=== PATIENT | female | born 1985 | race Caucasian/White ===

== ENCOUNTER 2016-11-02 23:00 | Emergency (ER) | payer OTHER ==
--- NOTE | 2016-11-03 00:05 | DIAGNOSTIC IMAGING REPORT ---
PROCEDURE: XR CHEST 1 VIEW INDICATION: CHEST PAIN TECHNIQUE: Portable AP view (2348 hours). COMPARISON: None. FINDINGS: Lungs are clear. Heart and mediastinum are normal. Thorax is normal. IMPRESSION: 1. Negative chest.
--- NOTE | 2016-11-03 01:26 | ED ORDER SUMMARY ---
..... Patient: AMINA CORNEJO OrderSheet [facility] VisitID: [id number] [address] [place] [address] 31y, F Registration Date/Time: 11/02/2016 ORDER SHEET Weight: 65.7 kg (stated) Allergies: No Known Drug Allergy GENERAL ORDERS: Chest 1V Urgent (23:52 11/02/2016 JBullard R.N. per protocol) (23:53 JBullard R.N.) Protocol Changed Cardiac Panel Stat (23:52 11/02/2016 JBullard R.N. per protocol) (23:53 JBullard R.N.) Protocol Changed EKG - ER Stat (:52 11/02/2016 JBullard R.N. per protocol) (Cancelled: Physician Order23:53 CHagerty ER Housekeeping And Laundry Team Leader) Protocol Changed Amylase Urgent (01:24 11/03/2016 Susan TIDWELL) (Ack 1:26 CHagerty ER Housekeeping And Laundry Team Leader) (1:32 JBullard R.N.) Lipase Urgent (:11/03/2016 Susan TIDWELL) (Ack 1:26 Isa ER Housekeeping And Laundry Team Leader) (1:32 JBullard R.N.) MEDICATION ORDERS: Pantoprazole Sodium PO 40 mg (Do not crush or chew, NOW) (:25 11/03/2016 Susan TIDWELL) (1:54 JBullard R.N.) IV FLUIDS: IV Saline Lock (23:52 11/02/2016 NEELullshaniqua R.N. per protocol) (23:53 JBullard R.N.) Protocol Changed ORDER SHEET NOTES: [Electronically signed by Eleuterio Berumen R.N. (01:57 11/03/2016)] [Electronically signed by Ivan South MD (15:42 11/07/2016)] [Electronically locked/signed by Eleuterio Berumen R.N. (:57 11/03/2016)]
--- NOTE | 2016-11-03 01:26 | ED CLINICAL REPORT ---
Clinical Report - Physicians/Mid Levels [facility] [address] [place] [address] 11/02/2016 23:01 Patient: AMINA CORNEJO Time Seen: 23:38. Arrived- By private vehicle. Historian- patient. HISTORY OF PRESENT ILLNESS Chief Complaint: ABDOMINAL PAIN. At its maximum, severity described as 7 / 10. When seen in the E.D., it was almost gone. It is described as cramping and it is described as located in the epigastric area and radiating to the upper back. This started last night and is still present but is better now. It was abrupt in onset and has been intermittent and waxing/waning. No nausea, loss of appetite, vomiting or diarrhea. (substernal radiating to back. comes and goes. woke pt from sleep. 7/10 pain at worst. pt states she is unable to take a deep breath at that time. pt states standing up straight exacerbates condition). Similar symptoms previously: ( She says that this pain is similar to when she had gallbladder attacks prior to her cholecystectomy). REVIEW OF SYSTEMS No chills, fever, muscle aches, calf pain or chest pain. No cough, difficulty breathing, pedal edema, palpitations or urinary problems. All systems otherwise negative, except as recorded above. SOCIAL HISTORY No alcohol use or drug use. FAMILY HISTORY Denies family medical history. ADDITIONAL NOTES The nursing notes have been reviewed. PHYSICAL EXAM Vital Signs: 11/02/2016 23:15 BP: 125/82. HR: 88. RR: 16. O2 saturation: 100%. Temp: 98.2 F. Have been reviewed. Appearance: Alert. Eyes: Pupils equal, round and reactive to light. ENT: Pharynx normal. Neck: Normal inspection. Neck supple. CVS: Normal heart rate and rhythm. Heart sounds normal. Respiratory: No respiratory distress. Breath sounds normal. Abdomen: Soft and nontender. Bowel sounds normal. No organomegaly. No mass. Back: Normal inspection. No CVA tenderness. Skin: Skin warm and dry. Normal skin color. Normal skin turgor. Extremities: Extremities exhibit normal ROM. No lower extremity edema. LABS, X-RAYS, AND EKG Chest X-ray: No acute disease. The X-rays were interpreted by the radiologist and contemporaneously by me. Laboratory Tests: CBC w Diff: (RIDDHI: 11/02/2016 23:30) ( MsgRcvd 11/03/2016 00:02) Final results Test Result Flag Units (Reference) WHITE BLOOD COUNT 10.5 K/uL (4.5-11.5) RED BLOOD COUNT 4.99 M/uL (4.00-5.20) HEMOGLOBIN 14.6 gm/dL (12.0-16.0) HEMATOCRIT 43.0 % (36.0-46.0) MEAN CELL VOLUME 86 fL (80-100) MEAN CORPUSCULAR HGB 29 pg (26-34) MEAN CORPUSCULAR HGB CONC 34 g/dL (31-37) RED CELL DISTRIBUTION WIDTH 12.9 % (11.6-14.8) PLATELET COUNT 311 K/uL (150-400) LYMPH % 25.2 % (25-40) MONO % 3.7 % (3-14) GRANULOCYTE % 71.1 (53-90) CHEM 13 PANEL: (RIDDHI: 11/02/2016 23:30) ( MsgRcvd 11/03/2016 00:14) Final results Test Result Flag Units (Reference) GLUCOSE 95 mg/dL (70-110) BUN 10 mg/dL (7-18) CREATININE 0.9 mg/dL (0.6-1.3) Estimated GFR >60 mL/min Estimated GFR- >60 mL/min Note: Persistent reduction over 3 months in eGFR<60 mL/min/1.73 m2 defines CKD. Patients with eGFR values>=60 mL/min/1.73 m2 may also have CKD if evidence ofpersistent proteinuria. Additional information may be foundat www.kidney.org. SODIUM 142 mmol/L (136-145) POTASSIUM 3.3 L mmol/L (3.5-5.1) CHLORIDE 102 mmol/L (98-107) CARBON DIOXIDE 27 mmol/L (21-32) CALCIUM 9.4 mg/dL (8.5-10.1) TOTAL PROTEIN 8.2 g/dL (6.4-8.2) ALBUMIN 4.4 g/dL (3.3-5.0) BILIRUBIN, TOTAL 0.4 mg/dL (0.0-1.0) ALKALINE PHOSPHATASE 97 U/L (46-116) AST (SGOT) 16 U/L (15-37) ALT (SGPT) 15 U/L (12-78) MAGNESIUM 2.0 mg/dL (1.8-2.4) CPK 132 U/L (24-260) TROPONIN I <0.05 L ng/mL (0.00-1.5) TROPONIN REFERENCE RANGE:<0.1 NEGATIVE0.1-1.5 INDETERMINANT>1.5 POSITIVE . PROGRESS AND PROCEDURES Course of Care: Patient is stable. Patient/family counseled. Old medical records ordered. Old records unavailable. Disposition: Discharged. Condition: stable. CLINICAL IMPRESSION Acute epigastric abdominal pain of unknown cause, now resolved. INSTRUCTIONS Drink plenty of fluids. Warnings: Further evaluation is necessary. GENERAL WARNINGS: Return or contact your physician immediately if your condition worsens or changes unexpectedly, if not improving as expected, or if other problems arise. Follow-up: Follow up with your doctor tomorrow. Understanding of the discharge instructions verbalized by patient. (Electronically signed by Ivan South MD 11/07/2016 15:42)
--- NOTE | 2016-11-03 01:26 | ED ORDER SUMMARY ---
..... Patient: AMINA CORNEJO OrderSheet [facility] VisitID: [id number] [address] [place] [address] 31y, F Registration Date/Time: 11/02/2016 ORDER SHEET Weight: 65.7 kg (stated) Allergies: No Known Drug Allergy GENERAL ORDERS: Chest 1V Urgent (23:52 11/02/2016 JBullard R.N. per protocol) (23:53 JBullard R.N.) Protocol Changed Cardiac Panel Stat (23:52 11/02/2016 JBullard R.N. per protocol) (23:53 JBullard R.N.) Protocol Changed EKG - ER Stat (:52 11/02/2016 JBullard R.N. per protocol) (Cancelled: Physician Order23:53 CHagerty ER Revenue Director) Protocol Changed Amylase Urgent (01:24 11/03/2016 Susan TIDWELL) (Ack 1:26 CHagerty ER Revenue Director) (1:32 JBullard R.N.) Lipase Urgent (:11/03/2016 Susan TIDWELL) (Ack 1:26 Isa ER Revenue Director) (1:32 JBullard R.N.) MEDICATION ORDERS: Pantoprazole Sodium PO 40 mg (Do not crush or chew, NOW) (:25 11/03/2016 Susan TIDWELL) (1:54 JBullard R.N.) IV FLUIDS: IV Saline Lock (23:52 11/02/2016 NEELullshaniqua R.N. per protocol) (23:53 JBullard R.N.) Protocol Changed ORDER SHEET NOTES: [Electronically signed by Eleuterio Berumen R.N. (01:57 11/03/2016)] [Electronically signed by Ivan South MD (15:42 11/07/2016)] [Electronically locked/signed by Eleuterio Berumen R.N. (:57 11/03/2016)]
--- NOTE | 2016-11-03 01:26 | ED NURSING NOTES ---
Clinical Report - Nurses [facility] [address] [place] [address] 11/02/2016 23:01 Patient: AMINA CORNEJO TRIAGE Triage time 2315. Acuity: LEVEL 2. Chief Complaint: CHEST PAIN. --23:20 Eleuterio Berumen R.N. 23:15 11/02/16. BP: 125/82. HR: 88. RR: 16. O2 saturation: 100%. Temp: 98.2 F. Pain level now 2/10. --23:20 Eleuterio Berumen R.N. Weight: 65.7 kg stated. Height/Length: 64 inches Per Patient. BMI: 24.9. --23:14 Eleuterio Berumen R.N. Medications None. --23:19 Eleuterio Berumen R.N. Allergies No Known Drug Allergy. --23:19 Eleuterio Berumen R.N. History Arrived by private vehicle. Historian: patient. Unaccompanied. This started today. ( substernal radiating to back. comes and goes. woke pt from sleep. 7/10 pain at worst. pt states she is unable to take a deep breath at that time. pt states standing up straight exacerbates condition.). She has had difficulty breathing. Reports experiencing sweating episodes. ( lips and tongue tingling). 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 PAST MEDICAL HX: Negative. FALL RISK ASSESSMENT: Fall risk assessment completed. No fall risk identified. NUTRITIONAL RISK ASSESSMENT: The nutritional risk assessment revealed no deficiencies. FUNCTIONAL ASSESSMENT: Functional assessment: no impairments noted. LEARNING NEEDS ASSESSMENT: The learning needs assessment revealed no barriers. SKIN INTEGRITY ASSESSMENT: Skin integrity risk assessment completed. No skin integrity risk identified. --23:20 Eleuterio Berumen R.N. ADDITIONAL SURGERIES: Cholecystectomy. --23:19 Eleuterio Berumen R.N. Interventions ID band on patient. --23:20 Eleuterio Berumen R.N. PHYSICAL ASSESSMENT Ambulatory to room. GENERAL / NEURO / PSYCH: Alert. Oriented X 4. HEENT: Mucous membranes are pink. RESPIRATORY: Respirations not labored. Breath sounds within normal limits. CVS: Pulses within normal limits. Capillary refill less than 2 seconds. GI / : Abdomen soft. EXTREMITIES: No lower extremity edema. SKIN: Skin is warm and dry. Normal skin turgor. --23:21 Eleuterio Berumen R.N. NURSING PROGRESS NOTES 23:52 11/02/2016 Site #1 started via IV in the right antecubital space with an 20g angiocath, with aseptic technique and good blood return. Blood drawn: rainbow set. Labeled in the presence of the patient and sent to the lab. Saline lock flushed with saline. --23:53 Eleuterio Berumen R.N. 00:45. Patient ID band checked for patient name and birthdate: patient confirmed urine collected with return of yellow-colored clear urine; sample sent to lab. Specimen labeled in the presence of the patient. --00:49 Adri Sy, FEDERICO Tech1 01:54 11/03/2016 Pantoprazole Sodium PO 40 mg given. Allergies verified and confirmed 5 rights. --01:54 Eleuterio Berumen R.N. 01:55 11/03/2016 Site #1 removed upon discharge. Pressure dressing applied. --01:55 Eleuterio Berumen R.N. DISPOSITION / DISCHARGE Departure time: 0156. Condition at departure: improved. No learning barriers present. Discharge instructions provided and reviewed with the patient. Reviewed warnings. Reviewed medication(s). Treatments reviewed. Patient verbalized understanding. Written instructions provided in Sami. The patient was discharged by the physician. She was discharged home and unaccompanied at time of discharge. She left the Emergency Department ambulatory and via private vehicle. Patient driving. FALL RISK ASSESSMENT: Fall risk assessment completed. No fall risk identified. --01:56 Eleuterio Berumen R.N. 01:55 11/03/16. BP: 101/72. HR: 88. RR: 16. O2 saturation: 100%. Temp: 98 F. Pain level now 2/10. --01:56 Eleuterio Berumen R.N. Locked/Released at 11/03/2016 1:57 by Eleuterio Berumen R.N.
--- NOTE | 2016-11-03 01:26 | ED NURSING NOTES ---
Clinical Report - Nurses [facility] [address] [place] [address] 11/02/2016 23:01 Patient: AMINA CORNEJO TRIAGE Triage time 2315. Acuity: LEVEL 2. Chief Complaint: CHEST PAIN. --23:20 Eleuterio Berumen R.N. 23:15 11/02/16. BP: 125/82. HR: 88. RR: 16. O2 saturation: 100%. Temp: 98.2 F. Pain level now 2/10. --23:20 Eleuterio Berumen R.N. Weight: 65.7 kg stated. Height/Length: 64 inches Per Patient. BMI: 24.9. --23:14 Eleuterio Berumen R.N. Medications None. --23:19 Eleuterio Berumen R.N. Allergies No Known Drug Allergy. --23:19 Eleuterio Berumen R.N. History Arrived by private vehicle. Historian: patient. Unaccompanied. This started today. ( substernal radiating to back. comes and goes. woke pt from sleep. 7/10 pain at worst. pt states she is unable to take a deep breath at that time. pt states standing up straight exacerbates condition.). She has had difficulty breathing. Reports experiencing sweating episodes. ( lips and tongue tingling). 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 PAST MEDICAL HX: Negative. FALL RISK ASSESSMENT: Fall risk assessment completed. No fall risk identified. NUTRITIONAL RISK ASSESSMENT: The nutritional risk assessment revealed no deficiencies. FUNCTIONAL ASSESSMENT: Functional assessment: no impairments noted. LEARNING NEEDS ASSESSMENT: The learning needs assessment revealed no barriers. SKIN INTEGRITY ASSESSMENT: Skin integrity risk assessment completed. No skin integrity risk identified. --23:20 Eleuterio Berumen R.N. ADDITIONAL SURGERIES: Cholecystectomy. --23:19 Eleuterio Berumen R.N. Interventions ID band on patient. --23:20 Eleuterio Berumen R.N. PHYSICAL ASSESSMENT Ambulatory to room. GENERAL / NEURO / PSYCH: Alert. Oriented X 4. HEENT: Mucous membranes are pink. RESPIRATORY: Respirations not labored. Breath sounds within normal limits. CVS: Pulses within normal limits. Capillary refill less than 2 seconds. GI / : Abdomen soft. EXTREMITIES: No lower extremity edema. SKIN: Skin is warm and dry. Normal skin turgor. --23:21 Eleuterio Berumen R.N. NURSING PROGRESS NOTES 23:52 11/02/2016 Site #1 started via IV in the right antecubital space with an 20g angiocath, with aseptic technique and good blood return. Blood drawn: rainbow set. Labeled in the presence of the patient and sent to the lab. Saline lock flushed with saline. --23:53 Eleuterio Berumen R.N. 00:45. Patient ID band checked for patient name and birthdate: patient confirmed urine collected with return of yellow-colored clear urine; sample sent to lab. Specimen labeled in the presence of the patient. --00:49 Adri Sy, FEDERICO Tech1 01:54 11/03/2016 Pantoprazole Sodium PO 40 mg given. Allergies verified and confirmed 5 rights. --01:54 Eleuterio Berumen R.N. 01:55 11/03/2016 Site #1 removed upon discharge. Pressure dressing applied. --01:55 Eleuterio Berumen R.N. DISPOSITION / DISCHARGE Departure time: 0156. Condition at departure: improved. No learning barriers present. Discharge instructions provided and reviewed with the patient. Reviewed warnings. Reviewed medication(s). Treatments reviewed. Patient verbalized understanding. Written instructions provided in Uzbek. The patient was discharged by the physician. She was discharged home and unaccompanied at time of discharge. She left the Emergency Department ambulatory and via private vehicle. Patient driving. FALL RISK ASSESSMENT: Fall risk assessment completed. No fall risk identified. --01:56 Eleuterio Berumen R.N. 01:55 11/03/16. BP: 101/72. HR: 88. RR: 16. O2 saturation: 100%. Temp: 98 F. Pain level now 2/10. --01:56 Eleuterio Berumen R.N. Locked/Released at 11/03/2016 1:57 by Eleuterio Berumen R.N.
--- NOTE | 2016-11-07 15:42 | ED MED RECONCILIATION SUMMARY ---
Patient: AMINA CORNEJO Medication Reconciliation Report [facility] VisitID: [id number] [address] [place] [address] 31y, F Registration Date/Time: 11/02/2016 Weight: 65.7 kg Height/Length: 64 in. BMI: 24.9 ALLERGIES: No Known Drug Allergy The patient's Home Medications are listed below: NONE. The source(s) of the original Home Medication information: Not obtained. The following Medications were given to the patient in the Emergency Department: Pantoprazole Sodium [PO] PO 40 mg, administered: 11/03/2016 1:54:00 AM The following Medications were prescribed to the patient: None.
--- NOTE | 2016-11-07 15:42 | ED DISCHARGE INSTRUCTIONS ---
Patient: AMINA CORNEJO General Instructions [facility] VisitID: [id number] [address] [place] [address] 31y, F Registration Date/Time: 11/02/2016 Acute epigastric abdominal pain of unknown cause, now resolved. INSTRUCTIONS Drink plenty of fluids. Warnings: Further evaluation is necessary. GENERAL WARNINGS: Return or contact your physician immediately if your condition worsens or changes unexpectedly, if not improving as expected, or if other problems arise. Follow-up: Follow up with your doctor tomorrow. Understanding of the discharge instructions verbalized by patient. (Electronically signed by Ivan South MD 11/07/2016 15:42)
--- NOTE | 2016-11-07 15:42 | ED MED RECONCILIATION SUMMARY ---
Patient: AMINA CORNEJO Medication Reconciliation Report [facility] VisitID: [id number] [address] [place] [address] 31y, F Registration Date/Time: 11/02/2016 Weight: 65.7 kg Height/Length: 64 in. BMI: 24.9 ALLERGIES: No Known Drug Allergy The patient's Home Medications are listed below: NONE. The source(s) of the original Home Medication information: Not obtained. The following Medications were given to the patient in the Emergency Department: Pantoprazole Sodium [PO] PO 40 mg, administered: 11/03/2016 1:54:00 AM The following Medications were prescribed to the patient: None.
--- NOTE | 2016-11-07 15:42 | ED DISCHARGE INSTRUCTIONS ---
Patient: AMINA CORNEJO General Instructions [facility] VisitID: [id number] [address] [place] [address] 31y, F Registration Date/Time: 11/02/2016 Acute epigastric abdominal pain of unknown cause, now resolved. INSTRUCTIONS Drink plenty of fluids. Warnings: Further evaluation is necessary. GENERAL WARNINGS: Return or contact your physician immediately if your condition worsens or changes unexpectedly, if not improving as expected, or if other problems arise. Follow-up: Follow up with your doctor tomorrow. Understanding of the discharge instructions verbalized by patient. (Electronically signed by Ivan South MD 11/07/2016 15:42)
--- NOTE | 2016-11-07 15:42 | ED MAR SUMMARY ---
..... Medication Administration Record [facility] [address] [place] [address] Patient: AMINA CORNEJO Visit ID: [id number] 31y, F Weight: 65.7 kg Height/Length: 64 in BMI: 24.9 ALLERGIES: No Known Drug Allergy Given 01:54 11/03/2016 Eleuterio Berumen R.N. Medication Administered: PANTOPRAZOLE SODIUM [PO], Dose: 40 mg PO. Medication Ordered: Pantoprazole Sodium PO 40 mg (Do not crush or chew, NOW).
--- NOTE | 2016-11-07 15:42 | ED MAR SUMMARY ---
..... Medication Administration Record [facility] [address] [place] [address] Patient: AMINA CORNEJO Visit ID: [id number] 31y, F Weight: 65.7 kg Height/Length: 64 in BMI: 24.9 ALLERGIES: No Known Drug Allergy Given 01:54 11/03/2016 Eleuterio Berumen R.N. Medication Administered: PANTOPRAZOLE SODIUM [PO], Dose: 40 mg PO. Medication Ordered: Pantoprazole Sodium PO 40 mg (Do not crush or chew, NOW).
== END 2016-11-03 01:53 | disposition home or self-care (01) ==
LOC: ED SRH 23:00
DX: R10.13 Epigastric pain (principal)
CPT/HCPCS: 90100; 90616; 92235; 92530; 92610; 92720; 95059